=== PATIENT | male | born 1940 | race Caucasian/White ===

== ENCOUNTER → 2023-11-21 07:09 | Outpatient (REF) | payer OTHER, SELFPAY | LOC: HWRAD 07:09 | PROVIDERS: ATTENDING PHYSICIAN Specialist; FAMILY PHYSICIAN Family Medicine | DX: R31.9 Hematuria, unspecified (principal) | CPT/HCPCS: 74176 ==

== ENCOUNTER → 2023-11-24 06:19 | Outpatient (REF) | payer OTHER, SELFPAY | LOC: HWRAD 06:19 | PROVIDERS: ATTENDING PHYSICIAN Nurse Practitioner Family | DX: R07.81 Pleurodynia (principal) | CPT/HCPCS: 71111 ==

== ENCOUNTER → 2024-01-22 07:02 | Outpatient (REF) | payer OTHER, SELFPAY | LOC: HWRAD 07:02 | PROVIDERS: ATTENDING PHYSICIAN Nurse Practitioner Family | DX: M54.6 Pain in thoracic spine (principal) | CPT/HCPCS: 72072; 72110 ==

== ENCOUNTER 2024-02-15 09:12 | Emergency (ER) | payer OTHER, SELFPAY ==
[2024-02-15 09:14] VITALS: BP 168/96
[2024-02-15 09:37] VITALS: BP 141/70
[2024-02-15 09:39] VITALS: BMI 22.1
[2024-02-15 09:51] LABS: % Basophils 0.4 % (0-2); % Eosinophils 1.4 % (0-6); % Immature Granulocytes 0.6 % (0-0.5); % Lymphocytes 12.5 % (20.5-51.1); % Neutrophils 77.1 % (42.2-75.2); Absolute Eosinophils 0.1 10^3/uL (0-0.7); Absolute Lymphocytes 0.6 10^3/uL (1.2-3.4); Absolute Monocytes 0.4 10^3/uL (0.1-0.6); Absolute Neutrophils 3.9 10^3/uL (1.4-6.5); Hematocrit 36.3 % (39.0-52.0); Hemoglobin 12.2 g/dL (13.0-18.0); Mean Corp Hgb Conc. 33.6 g/dL (33.0-37.0); Mean Corpuscular Hgb 30.3 pg (27.0-31.0); Mean Corpuscular Volume 90.1 fL (80.0-94.0); Mean Platelet Volume 10.3 fL (7.4-10.4); Nucleated Red Blood Cells % 0 % (-); Platelet Count 159 10^3/uL (130-400); Red Blood Cell Count 4.03 10^6/uL (4.70-6.10); Red Cell Dist. Width 14.6 % (11.5-14.5)
[2024-02-15 10:00] VITALS: BP 120/70
[2024-02-15 10:03] LABS: APTT 47.7 Sec (23.4-35.0); PT 58.2 Sec (11.4-14.6)
[2024-02-15 10:05] LABS: INR 6.48
--- NOTE | 2024-02-15 10:15 | ED.GENMED ---
History of Present Illness
General
Chief Complaint: Abnormal Lab Value
Source: patient
Time Seen by Provider: 02/15/24 09:25
History of Present Illness
History of Present Illness:
83-year-old male with past medical history of DVT and PE, on Coumadin, presenting to the emergency department after he received a call from primary care's office stating his INR was greater than 6 and should go to the emergency department for
further evaluation. Patient states he has no symptoms at this time other than he did notice he was bruising a little bit easier than normal. Denies any melena or hematochezia, headaches, gingival bleeding or any other concerns. He did not take
his Coumadin yet today. He denies any changes in medications.
Past History
Past History
ED Past Medical History: HTN, Renal failure and Other (Crohn's disease, pulmonary embolus)
ED Past Surgical History: Bowel resection (Colectomy with ileostomy)
Social History
Tobacco: Non-smoker
Alcohol: None
Drug: None
Personal:
Living: with family
Review of Systems
Review of Systems
All Other Systems: ROS reviewed and negative except as documented in HPI and ROS
Phy Exam
Physical Exam
Physical Exam:
GENERAL: Alert , in no apparent distress
EYE: conjunctiva clear
Head: Normocephalic atraumatic
NECK: Supple,
ENT: mmm.
LUNGS: no acute respiratory distress
NEUROLOGICAL: Alert and oriented
SKIN: Warm and dry, skin intact. Scattered areas of ecchymosis to bilateral upper and lower extremities
MUSCULOSKELETAL: well perfused.
PSYCH: Normal and appropriate interaction.
Scores
Heart Failure Risk
Heart Failure Risk Score: Not Applicable
Heart Score for Chest Pain Patients
STEMI patient?: Not applicable
Withdrawal Assessment of Alcohol
Withdrawal Assessment Completed?: Not applicable
Course
Orders/Labs/Results
Orders:
Orders
02/15/24 09:26
Basic Metabolic Panel Urgent
02/15/24 09:43
PTT Urgent
Prothrombin Time Urgent
02/15/24 09:44
Complete Blood Count/With Diff Urgent
Abnormal Lab Results
02/15/24 02/15/24
09:43 09:44
RBC 4.03 L 10^6/uL
(4.70-6.10)
Hgb 12.2 L g/dL
(13.0-18.0)
Hct 36.3 L %
(39.0-52.0)
RDW 14.6 H %
(11.5-14.5)
Absolute Lymphs (auto) 0.6 L 10^3/uL
(1.2-3.4)
Immature Gran % 0.6 H %
(0-0.5)
Neutrophils % 77.1 H %
(42.2-75.2)
Lymphocytes % 12.5 L %
(20.5-51.1)
PT 58.2 H Sec
(11.4-14.6)
INR 6.48 H*
APTT 47.7 H Sec
(23.4-35.0)
02/15/24 09:44
Vital Signs
Initial and Last Documented VS:
Initial Vital Signs
Temp Pulse Resp BP Pulse Ox
99.2 F 77 16 168/96 98
02/15/24 09:14 02/15/24 09:14 02/15/24 09:14 02/15/24 09:14 02/15/24 09:14
Last Documented Vital Signs
Temp Pulse Resp BP Pulse Ox
99.2 F 77 16 141/70 97
02/15/24 09:14 02/15/24 09:14 02/15/24 09:14 02/15/24 09:37 02/15/24 09:38
MDM/Problems Addressed
MDM/Problems Addressed:
83-year-old male presenting emergency department for evaluation of reported elevated INR on outpatient labs done at [facility]. Patient is asymptomatic at present time. Will recheck labs and reassess following. Patient without any signs of active
bleeding and is otherwise hemodynamically stable
Chronic conditions affecting care: Other (DVT/PE)
*Pulse Oximetry
Patient hypoxic: no
*Critical Care Note
Total Time (30-74mins, 75-104mins- exclusive of procedures): Not Applicable
Data Reviewed
Review of Other/Old Records Reveals: Labs
Patient Management
Discussion with other providers: PCP
Escalation/DeEscalation of care consider admission/obs:
Patient's INR is 6.5 here in the emergency department. Given he is not having any active bleeding and otherwise stable decision was made to ultimately hold his Coumadin for the rest of the day today and tomorrow and to have his INR rechecked on
Monday. Patient and are agreeable with this plan. I notified patient's primary care provider who will ensure patient follows up to get his INR rechecked Monday. I advised the patient and that if they were unable to go to [facility] to
get this test done that they may return to the emergency department to have us recheck his INR here. They expressed understanding.
ED Attending Note
-
Portions of this chart may have been created with voice recognition software.� Occasional wrong word or��sound alike� substitutions may have occurred due to the inherent limitations of voice recognition software.
Discharge Plan
Departure
Patient Disposition: Home (Routine Discharge)
Date of Disposition: 02/15/24
Time of Disposition: 10:15
Patient with high blood pressure during this ER visit?: Yes
Discharge Problem:
Supratherapeutic INR
Instructions: Prothrombin time and INR (PT/INR)
Prescriptions:
No Action
echinacea 500 MG capsule
548 mg PO BID PRN (Reason: colds)
beta carotene 10,000 UNIT capsule
10,000 unit PO DAILY
Lactobacillus acidophilus [Acidophilus] 1 CAP capsule
1 cap PO DAILY PRN (Reason: diarrhea)
lycopene 10 MG capsule
10 mg PO DAILY
cholecalciferol (vitamin D3) 2,000 UNITS tablet
2,000 units PO DAILY
selenium 200 MCG capsule
200 mcg PO DAILY
warfarin [Jantoven] 3 MG tablet
6 mg PO SUTUWETHSA@1600
warfarin [Jantoven] 5 MG tablet
5 mg PO MOFR@1600
mesalamine [Canasa] 1,000 MG suppository
1,000 mg IN HS
hydrocodone-acetaminophen 1 TABLET tablet
1 tab PO Q4HPRN PRN (Reason: SEVERE PAIN)
tamsulosin 0.4 MG capsule
0.4 mg PO DAILY Qty: 15 0RF
Referrals:
Horacio Santoro MD [Family Provider] -
Activity Restrictions/Additional Instructions:
Your INR today was 6.5. You are going to discontinue taking your Coumadin the rest of the day today as well as all day tomorrow. On Monday you need to get your INR rechecked. If you are unable to do this at an outpatient lab please return to
the emergency department to have this redone.
Interventions
Interventions:
*Risk Screen - Suicide Last Done: 02/15/24 09:14
*General Assessment Last Done: 02/15/24 09:14
*Neglect/Abuse Screening Last Done: 02/15/24 09:14
ED- Fall Risk Assessment Last Done: 02/15/24 09:40
*ED COVID-19 Vaccine History Last Done: 02/15/24 09:40
Discharge Date and Time
Print Language: TAIWANESE
[2024-02-15 10:21] LABS: Blood Urea Nitrogen 19 mg/dl (9-20); Calcium 9.2 mg/dl (8.4-10.2); Carbon Dioxide 25 mmol/L (22-30); Chloride 103 mmol/L (98-107); Estimated Creatinine Clearance 64 ml/min; Glucose 95 mg/dl (70-99); Potassium 4.2 mmol/L (3.5-5.1); Sodium 137 mmol/L (135-145); eGFR > 60.00
== END 2024-02-15 10:37 | disposition home or self-care (01) ==
LOC: EMR 09:12
PROVIDERS: Physician Assistant Medical; EMERGENCY PHYSICIAN Student in an Organized Health Care Education/Training Program; FAMILY PHYSICIAN Family Medicine
DX: R79.1 Abnormal coagulation profile (principal); Z86.711 Personal history of pulmonary embolism; Z79.01 Long term (current) use of anticoagulants; I10 Essential (primary) hypertension
CPT/HCPCS: 99283; 80048; 85025; 85610; 85730

== ENCOUNTER → 2024-02-17 06:43 | Outpatient (REF) | payer OTHER, SELFPAY | LOC: MRI 06:43 | PROVIDERS: ATTENDING PHYSICIAN Physical Medicine & Rehabilitation; FAMILY PHYSICIAN Family Medicine | DX: M54.14 Radiculopathy, thoracic region (principal) | CPT/HCPCS: 72146 ==

== ENCOUNTER 2024-02-17 08:54 | Emergency (ER) | payer OTHER, SELFPAY ==
[2024-02-17 09:04] VITALS: BP 123/89
[2024-02-17 09:35] VITALS: BMI 21.2
--- NOTE | 2024-02-17 09:36 | ED.GENMED ---
History of Present Illness
General
Chief Complaint: Abnormal Lab Value
Time Seen by Provider: 02/17/24 09:21
History of Present Illness
History of Present Illness:
83 yo male returns to the ER for INR recheck. Was here 2d ago for this at which time INR was 6.48. Next two doses of warfarin were held and he returns today for recheck. Target INR 2-3. No complaints, denies gingival bleeding, hematuria, melena.
Past History
Past History
ED Past Medical History: HTN, Renal failure and Other (Crohn's disease, pulmonary embolus)
ED Past Surgical History: Bowel resection (Colectomy with ileostomy)
Social History
Tobacco: Non-smoker
Alcohol: None
Drug: None
Personal:
Living: with family
Review of Systems
Review of Systems
Allergies reviewed?: Yes
All Other Systems: ROS reviewed and negative except as documented in HPI and ROS
Phy Exam
Physical Exam
Physical Exam:
GEN: Well appearing, NAD, WDWN
HEENT: Oral mucosa moist, no scleral icterus
Cardiac: Regular rate
Lung: No respiratory distress, no tachypnea
MSK: No gross deformity or injuries
Skin: Good color, no pallor or jaundice, no rashes
Neuro: AO x3, moves all extremities freely
Psych: Calm, cooperative
Course
Orders/Labs/Results
Orders:
Orders
02/17/24 09:31
Prothrombin Time Urgent
Abnormal Lab Results
02/17/24
09:31
PT 38.5 H Sec
(11.4-14.6)
Vital Signs
Initial and Last Documented VS:
Initial Vital Signs
Temp Pulse Resp BP Pulse Ox
98.8 F 75 16 123/89 98
02/17/24 09:04 02/17/24 09:04 02/17/24 09:04 02/17/24 09:04 02/17/24 09:04
Last Documented Vital Signs
Temp Pulse Resp BP Pulse Ox
98.8 F 75 16 123/89 98
02/17/24 09:04 02/17/24 09:04 02/17/24 09:04 02/17/24 09:04 02/17/24 09:04
MDM/Problems Addressed
MDM/Problems Addressed:
Repeat INR 3.9, will advise 1 cm holding warfarin and 1 day of half dosage before resuming to normal and repeat INR in 48 hours
*Critical Care Note
Total Time (30-74mins, 75-104mins- exclusive of procedures): Not Applicable
ED Attending Note
-
Portions of this chart may have been created with voice recognition software.� Occasional wrong word or��sound alike� substitutions may have occurred due to the inherent limitations of voice recognition software.
Discharge Plan
Departure
Patient Disposition: Home (Routine Discharge)
Date of Disposition: 02/17/24
Time of Disposition: 10:10
Patient with high blood pressure during this ER visit?: No
Discharge Problem:
Supratherapeutic INR
Prescriptions:
No Action
echinacea 500 MG capsule
548 mg PO BID PRN (Reason: colds)
beta carotene 10,000 UNIT capsule
10,000 unit PO DAILY
Lactobacillus acidophilus [Acidophilus] 1 CAP capsule
1 cap PO DAILY PRN (Reason: diarrhea)
lycopene 10 MG capsule
10 mg PO DAILY
cholecalciferol (vitamin D3) 2,000 UNITS tablet
2,000 units PO DAILY
selenium 200 MCG capsule
200 mcg PO DAILY
warfarin [Jantoven] 3 MG tablet
6 mg PO SUTUWETHSA@1600
warfarin [Jantoven] 5 MG tablet
5 mg PO MOFR@1600
mesalamine [Canasa] 1,000 MG suppository
1,000 mg ME HS
hydrocodone-acetaminophen 1 TABLET tablet
1 tab PO Q4HPRN PRN (Reason: SEVERE PAIN)
tamsulosin 0.4 MG capsule
0.4 mg PO DAILY Qty: 15 0RF
Referrals:
Horacio Santoro MD [Family Provider] -
Activity Restrictions/Additional Instructions:
Do not take your dose of warfarin today
Take 1/2 dose (2.5mg) tomorrow
Have your INR rechecked on Monday
Interventions
Interventions:
*Risk Screen - Suicide Last Done: 02/17/24 09:04
*General Assessment Last Done: 02/17/24 09:04
*Neglect/Abuse Screening Last Done: 02/17/24 09:04
ED- Fall Risk Assessment Last Done: 02/17/24 09:36
*ED COVID-19 Vaccine History Last Done: 02/17/24 09:21
*Nursing Disposition Last Done: 02/17/24 10:26
Discharge Date and Time
Discharge Date/Time: 02/17/24 10:27
Print Language: PASHTO
[2024-02-17 09:55] LABS: INR 3.93; PT 38.5 Sec (11.4-14.6)
== END 2024-02-17 10:27 | disposition home or self-care (01) ==
LOC: EMR 08:54
PROVIDERS: Physician Assistant; EMERGENCY PHYSICIAN Emergency Medicine; FAMILY PHYSICIAN Family Medicine
DX: R79.1 Abnormal coagulation profile (principal); Z79.01 Long term (current) use of anticoagulants
CPT/HCPCS: 99283; 85610

== ENCOUNTER 2024-03-09 12:00 | Emergency (ER) | payer OTHER, SELFPAY ==
[2024-03-09 12:05] VITALS: BP 126/80
[2024-03-09 12:33] LABS: % Basophils 0.5 % (0-2); % Eosinophils 0.3 % (0-6); % Immature Granulocytes 0.3 % (0-0.5); % Lymphocytes 11.4 % (20.5-51.1); % Monocytes 6.6 % (1.7-9.3); % Neutrophils 80.9 % (42.2-75.2); Absolute Lymphocytes 0.7 10^3/uL (1.2-3.4); Absolute Monocytes 0.4 10^3/uL (0.1-0.6); Absolute Neutrophils 5.1 10^3/uL (1.4-6.5); Hematocrit 36.7 % (39.0-52.0); Hemoglobin 12.6 g/dL (13.0-18.0); Mean Corp Hgb Conc. 34.3 g/dL (33.0-37.0); Mean Corpuscular Hgb 30.7 pg (27.0-31.0); Mean Corpuscular Volume 89.5 fL (80.0-94.0); Mean Platelet Volume 10.2 fL (7.4-10.4); Nucleated Red Blood Cells % 0 % (-); Platelet Count 180 10^3/uL (130-400); Red Cell Dist. Width 15.8 % (11.5-14.5); White Blood Cell Count 6.3 10^3/uL (4.8-10.8)
[2024-03-09 12:54] LABS: ALT (SGPT) 15 U/L (0-50); AST (SGOT) 33 U/L (17-59); Albumin 4.5 g/dl (3.5-5.0); Alkaline Phosphatase 56 U/L (38-126); Blood Urea Nitrogen 26 mg/dl (9-20); Calcium 9.6 mg/dl (8.4-10.2); Carbon Dioxide 26 mmol/L (22-30); Chloride 101 mmol/L (98-107); Glucose 120 mg/dl (70-99); Potassium 4.6 mmol/L (3.5-5.1); Sodium 133 mmol/L (135-145); Total Bilirubin 1.2 mg/dl (0.2-1.3); Total Protein 7.3 g/dl (6.3-8.2); eGFR > 60.00
[2024-03-09 12:55] LABS: Alcohol None Detected
--- NOTE | 2024-03-09 14:38 | ED.GENMED ---
History of Present Illness
General
Chief Complaint: Weight Changes
Source: patient
Exam Limitations: none
Time Seen by Provider: 03/09/24 14:21
History of Present Illness
History of Present Illness:
See MDM
Past History
Past History
ED Past Medical History: HTN, Renal failure and Other (Crohn's disease, pulmonary embolus)
ED Past Surgical History: Bowel resection (Colectomy with ileostomy)
Social History
Tobacco: Non-smoker
Alcohol: None
Drug: None
Personal:
Living: with family
Phy Exam
Physical Exam
Physical Exam:
See MDM
Scores
Heart Failure Risk
Heart Failure Risk Score: Not Applicable
Course
Orders/Labs/Results
Orders:
Orders
03/09/24 12:16
Alcohol Urgent
Complete Blood Count/With Diff Urgent
Comprehensive Metabolic Panel Urgent
03/09/24 14:36
CT Head W/o Iv Contrast Urgent
Comment:
Reason For Exam: weak, confused
0.9% Sodium Chloride 1000 ml [Nss] 1,000 ml IV BOLUS
03/09/24 14:50
Prothrombin Time Urgent
Urinalysis Reflex To Culture Urgent
Date Specimen was Collected: 03/09/24
Time Specimen was Collected: 14:39
Urine Microscopic Reflex Cult Urgent
Abnormal Lab Results
03/09/24 03/09/24
12:16 14:50
RBC 4.10 L 10^6/uL
(4.70-6.10)
Hgb 12.6 L g/dL
(13.0-18.0)
Hct 36.7 L %
(39.0-52.0)
RDW 15.8 H %
(11.5-14.5)
Absolute Lymphs (auto) 0.7 L 10^3/uL
(1.2-3.4)
Neutrophils % 80.9 H %
(42.2-75.2)
Lymphocytes % 11.4 L %
(20.5-51.1)
PT 40.3 H Sec
(11.4-14.6)
Sodium 133 L mmol/L
(135-145)
BUN 26 H mg/dl
(9-20)
Glucose 120 H mg/dl
(70-99)
Urine Ketones Trace A
(Negative)
Ur Occult Blood Reflex Trace A
(Negative)
03/09/24 12:16
03/09/24 12:16
Vital Signs
Initial and Last Documented VS:
Initial Vital Signs
Temp Pulse Resp BP Pulse Ox
97.8 F 63 20 126/80 95
03/09/24 12:05 03/09/24 12:05 03/09/24 12:05 03/09/24 12:05 03/09/24 12:05
Last Documented Vital Signs
Temp Pulse Resp BP Pulse Ox
98.5 F 76 16 136/81 99
03/09/24 17:13 03/09/24 17:13 03/09/24 17:13 03/09/24 17:13 03/09/24 17:13
MDM/Problems Addressed
Differential Diagnosis Includes:
HPI and MDM Narrative:
83-year-old male presenting with for evaluation of generalized weakness, fatigue and confusion. Patient is extremely well-appearing and nontoxic on my examination. is concerned he is losing weight. Upon further questioning, it appears
that he lost his hunger and thirst and has not been eating much. We discussed this is likely the cause of his symptoms. Because of the decreased calorie intake, he is losing weight and becoming more tired and staying in bed more causing
deconditioning. We discussed different ways of increasing calorie intake and water intake. Will give IV fluids. Blood work without clinical significance to suggest significant lab abnormalities. After hearing this, both patient and are
relieved. Given the mild weakness and altered mental status as described by the , will obtain CT head and urinalysis. On my exam, patient has no focal deficits, is very pleasant and is conversing without issues.
Physical exam
General: Well appearing and non-toxic
HEENT: protecting airway. Mildly dry mucous membrane
Neck: appears supple
CV: No evidence of cyanosis
Resp: No accessory muscle use
Abd: Non-distended and nontender. Ileostomy with mild surrounding erythema from leakage
Extremities: No deformities
Neuro: alert
Psych: Normal affect
Skin: Intact
Problems Addressed including Acute and Chronic Conditions affecting care:
1. Weight loss
Acuity: acute
Prognosis: stable
Details: In the setting of decreased caloric intake. Discussed alternative ways to increase calories and fluids
2. General weakness
Acuity: acute
Prognosis: stable
Details: Likely in setting of decreased caloric intake. Will obtain CT head and urinalysis
3. Ileostomy skin irritation
Acuity: acute
Prognosis: stable
Details: There appears to be mild erythema which is likely consistent with fungal and questionable infection. Will prescribe antifungal and mupirocin ointment as a barrier
Updates
Urine and CT negative. Patient feels comfortable taking him home
Differential Diagnosis (but not limited to): Malnourishment, UTI, undiagnosed cancer
Testing considered: CT abdomen/pelvis but he has no pain
Drug therapy (if applicable): OTC meds, please see d/c instruction regarding Rx drugs
Amount and/or Complexity of Data Reviewed
Clinical info obtained from: Patient. indicates that he is not eating much
External data reviewed: N/A
Labs I independently reviewed (but not limited to): Sodium mildly low at 133
Radiology: The CT scan was personally and independently reviewed. In addition, official CT report reviewed.
Pulse Ox: not hypoxic
EKG independently reviewed: N/A
Liquid Sugar Melter: N/A
Critical Care: N/A
Risk of Complication:
Social Determinants of health: Good social support
Discussed with other providers: N/A
Escalation of Care includes Admit/Obs: After being observed in the Emergency Department, pt stable for discharge.
Occasional wrong word or 'sound a like' substitutions may have occurred due to the inherent limitations of voice recognition software. Read the chart carefully and recognize, using context, where substitutions have occurred.
*Critical Care Note
Total Time (30-74mins, 75-104mins- exclusive of procedures): Not Applicable
ED Attending Note
-
Portions of this chart may have been created with voice recognition software.� Occasional wrong word or��sound alike� substitutions may have occurred due to the inherent limitations of voice recognition software.
Discharge Plan
Departure
Patient Disposition: Home (Routine Discharge)
Date of Disposition: 03/09/24
Time of Disposition: 16:54
Patient with high blood pressure during this ER visit?: Yes
Discharge Problem:
Malnutrition, Ileostomy dysfunction
Instructions: BLOOD PRESSURE
Prescriptions:
New
clotrimazole 1 % cream
1 applic topical BID 14 Days Qty: 15 0RF
mupirocin 2 % ointment
1 applic topical BID Qty: 15 0RF
No Action
echinacea 500 MG capsule
548 mg PO BID PRN (Reason: colds)
beta carotene 10,000 UNIT capsule
10,000 unit PO DAILY
Acidophilus 1 CAP capsule
1 cap PO DAILY PRN (Reason: diarrhea)
cholecalciferol (vitamin D3) 2,000 UNITS tablet
2,000 units PO DAILY
selenium 200 MCG capsule
200 mcg PO DAILY
mesalamine [Canasa] 1,000 MG suppository
1,000 mg [place] HS
hydrocodone-acetaminophen 1 TABLET tablet
1 tab PO Q4HPRN PRN (Reason: SEVERE PAIN)
tamsulosin 0.4 MG capsule
0.4 mg PO DAILY Qty: 15 0RF
warfarin 2 mg Tablet
2 mg PO DAILY
escitalopram oxalate 5 mg Tablet
5 mg PO DAILY
Referrals:
Horacio Santoro MD [Family Provider] -
Activity Restrictions/Additional Instructions:
As we discussed, much of the issue appears to be poor food and water intake. Please talk to your doctor about malnutrition. You may use ensures in between meals to help with extra calories. You can mix the 2 creams as a barrier for the irritated
skin around the ileostomy
Interventions
Interventions:
*Risk Screen - Suicide Last Done: 03/09/24 12:05
*General Assessment Last Done: 03/09/24 12:05
*Neglect/Abuse Screening Last Done: 03/09/24 12:05
ED- Fall Risk Assessment Last Done: 03/09/24 14:54
*ED COVID-19 Vaccine History Last Done: 03/09/24 14:54
*Nursing Disposition Last Done: 03/09/24 17:13
Discharge Date and Time
Discharge Date/Time: 03/09/24 17:14
Print Language: CZECH
[2024-03-09 14:43] VITALS: BP 143/90
[2024-03-09] MEDS: NSS 1000 IV (14:51)
[2024-03-09 14:54] VITALS: BP 143/90; BMI 22.8
[2024-03-09 15:00] VITALS: BP 147/77
[2024-03-09 15:11] LABS: INR 4.16; PT 40.3 Sec (11.4-14.6)
[2024-03-09 16:30] LABS: Urine Albumin Trace (Neg - Trace); Urine Bilirubin Negative (Negative); Urine Character Clear (Clear); Urine Color Yellow; Urine Glucose Negative (Negative); Urine Ketone Trace (Negative); Urine Leukocyte Negative (Negative); Urine Nitrite Negative (Negative); Urine Occult Blood Trace (Negative); Urine Urobilinogen Negative (Neg - 1+)
[2024-03-09 16:37] LABS: Urine Hyaline Cast 0-2 /LPF (0-2); Urine Red Blood Cell 0-2 /HPF (0-2); Urine White Cell 0-2 /HPF (0-5)
[2024-03-09 17:13] VITALS: BP 136/81
== END 2024-03-09 17:14 | disposition home or self-care (01) ==
LOC: EMR 12:00
PROVIDERS: Emergency Medicine; EMERGENCY PHYSICIAN Student in an Organized Health Care Education/Training Program; FAMILY PHYSICIAN Family Medicine
DX: E46 Unspecified protein-calorie malnutrition (principal); Z68.22 Body mass index [BMI] 22.0-22.9, adult; R53.1 Weakness; R63.4 Abnormal weight loss; R41.0 Disorientation, unspecified; R53.83 Other fatigue; K94.13 Enterostomy malfunction; L53.9 Erythematous condition, unspecified; Y83.8 Other surgical procedures as the cause of abnormal reaction of the patient, or of later complication, without mention of misadventure at the time of the procedure; R03.0 Elevated blood-pressure reading, without diagnosis of hypertension; I12.9 Hypertensive chronic kidney disease with stage 1 through stage 4 chronic kidney disease, or unspecified chronic kidney disease; N18.9 Chronic kidney disease, unspecified; K50.90 Crohn's disease, unspecified, without complications; Z98.0 Intestinal bypass and anastomosis status; Z86.711 Personal history of pulmonary embolism
CPT/HCPCS: 99284; 96360; 70450; 80053; 81003; 81015; 82077; 85025; 85610

== ENCOUNTER → 2024-09-26 15:15 | Outpatient (REF) | payer OTHER, SELFPAY | LOC: PAVMRI 15:15 | PROVIDERS: ATTENDING PHYSICIAN Specialist; FAMILY PHYSICIAN Family Medicine | DX: G30.1 Alzheimer's disease with late onset (principal) | CPT/HCPCS: 70551 ==

== ENCOUNTER 2025-03-25 08:18 | Emergency (ER) | payer OTHER, SELFPAY ==
[2025-03-25 08:30] VITALS: BP 94/62
--- NOTE | 2025-03-25 10:23 | EDRN ---
[place] text message sent to case management, voicemail left for Courtney Jeffery home care nurse, phone number provided by pt's . Case management to follow with home care. Pt wearing a pull up which was saturated in urine. Perineal care provided,
sacral area red and excoriated. Pt placed on the R side at this time. New pull up was put on per 's request. Pt is currently a waiting room pt, but laying down in P1. Charge nurse is aware.
--- NOTE | 2025-03-25 10:55 | ED.GENMED ---
History of Present Illness
General
Chief Complaint: Back Pain
Source: spouse
Exam Limitations: dementia
Time Seen by Provider: 03/25/25 10:42
Nursing documentation reviewed up to this point in time: agreed with
History of Present Illness
History of Present Illness:
Patient is an 84-year-old male with past medical history of dementia, Alzheimer's PE hypertension hyperlipidemia Crohn's ileostomy anticoagulated on Coumadin brought to the ER by EMS. reports for the past 3 days patient has not gotten out of
his chair. He normally walks with a walker however has not been able to do so. He has not been eating or drinking. He rolled out of his chair yesterday 9 1 was called to assist him back in the chair. Today he slid out of the chair and
reports she could not pick him up.
She did speak with his pcp who does recommend home hospice. They were supposed to come today because but she was not able to care for him today and brought him here to the ER.
Past History
Past History
ED Past Medical History: HTN, Renal failure and Other (Crohn's disease, pulmonary embolus)
ED Past Surgical History: Bowel resection (Colectomy with ileostomy)
Social History
Tobacco: Non-smoker
Alcohol: None
Drug: None
Personal:
Living: with family
Phy Exam
General Physical Exam
General Presentation: no apparent distress
General age: appears older than age
General Skin: warm and dry
General Habitus: cachetic and failure to thrive
General Mental: other (pt sleepy)
General Hydration: dry mucous membranes
Cardiovascular Exam
Cardiovascular Exam: regular rate/rhythm, no murmur and normal peripheral pulses
Pulmonary Exam
Pulmonary Exam: lungs clear and no respiratory distress
Neurological Exam
Neurological Exam: alert
Musculoskeletal Exam
Musculoskeletal Exam: full ROM
Skin Exam
Skin Exam: normal color and warm/dry
Psychiatric Exam
Psychiatric Exam: normal mood/affect
Course
Vital Signs
Initial and Last Documented VS:
Initial Vital Signs
Temp Pulse Resp BP Pulse Ox
97.8 F 74 20 94/62 94
03/25/25 08:30 03/25/25 08:30 03/25/25 08:30 03/25/25 08:30 03/25/25 08:30
Last Documented Vital Signs
Temp Pulse Resp BP Pulse Ox
97.8 F 87 20 112/63 96
03/25/25 08:30 03/25/25 16:51 03/25/25 16:51 03/25/25 16:00 03/25/25 16:45
MDM/Problems Addressed
Differential Diagnosis Includes:
Not limited to failure to thrive, worsening dementia head injury, weakness dehydration
MDM/Problems Addressed:
Patient is an 82-year-old male with history of dementia/Alzheimer's cared for at home by . reports patient has not been eating for the past several days sitting in his chair very weak. He is of his chair yesterday 9 1 needed to come
assist him up again had a fall today. She called EMS because she was not able to get him up. Hospice is supposed to be coming to the house today.
I had a long conversation with and as she is considering hospice she wishes to hold off on any imaging labs CT etc. Pt able to state name but otherwise not really verbal here.
She wanted to speak with hospice nurse and hospice nurse fully evaluated patient at bedside.
is in agreement to place patient on hospice.
Hospice has arranged for transportation and will send hospice medications to the pharmacy. is also to get extra help at home, private duty care.
*Pulse Oximetry
SaO2: 94
Oxygen Mode of Delivery: Room air
Patient hypoxic: no
*Critical Care Note
Total Time (30-74mins, 75-104mins- exclusive of procedures): Not Applicable
ED Attending Note
-
Portions of this chart may have been created with voice recognition software.� Occasional wrong word or��sound alike� substitutions may have occurred due to the inherent limitations of voice recognition software.
Discharge Plan
Departure
Patient Disposition: Home (Routine Discharge)
Date of Disposition: 03/25/25
Time of Disposition: 12:44
Patient with high blood pressure during this ER visit?: No
Condition: Fair
Covid-19: Not Applicable
Discharge Problem:
Weakness
Instructions: Weakness
Prescriptions:
No Action
echinacea 500 MG capsule
548 mg PO BID PRN (Reason: colds)
beta carotene 10,000 UNIT capsule
10,000 unit PO DAILY
Acidophilus 1 CAP capsule
1 cap PO DAILY PRN (Reason: diarrhea)
cholecalciferol (vitamin D3) 2,000 UNITS tablet
2,000 units PO DAILY
selenium 200 MCG capsule
200 mcg PO DAILY
mesalamine [Canasa] 1,000 MG suppository
1,000 mg [place] HS
hydrocodone-acetaminophen 1 TABLET tablet
1 tab PO Q4HPRN PRN (Reason: SEVERE PAIN)
tamsulosin 0.4 MG capsule
0.4 mg PO DAILY Qty: 15 0RF
clotrimazole 1 % cream
1 applic topical BID 14 Days Qty: 15 0RF
mupirocin 2 % ointment
1 applic topical BID Qty: 15 0RF
warfarin 2 mg Tablet
2 mg PO DAILY
escitalopram oxalate 5 mg Tablet
5 mg PO DAILY
Referrals:
Horacio Santoro MD [Family Provider, Family Practice]
Interventions
Interventions:
*Risk Screen - Suicide Last Done: 03/25/25 08:21
*General Assessment Last Done: 03/25/25 08:21
*Neglect/Abuse Screening Last Done: 03/25/25 08:21
*ED- Fall Risk Assessment Last Done: 03/25/25 11:54
*ED COVID-19 Vaccine History Last Done: 03/25/25 10:56
*Nursing Disposition Last Done: 03/25/25 17:04
ED-Musculoskeletal Assessment Last Done: 03/25/25 11:54
Discharge Date and Time
Discharge Date/Time: 03/25/25 17:05
Print Language: MALTESE
[2025-03-25 12:19] VITALS: BP 110/71
[2025-03-25 13:00] VITALS: BP 112/72
--- NOTE | 2025-03-25 13:42 | CM ---
CM reviewed chart, was informed by ED that pt's wants to take him home with hospice. hospice notified by ED.
I met with his bedside in ED. Lives in apartment with his , [address], has elevator access.
Pt has been sleeping in his recliner. Per ED notes, was supposed to have home care visit today but sent him to ED.
Per Chelsey in hospice, pt does not need equipment delivered. Transport arranged for 530pm this evening.
PCP: Horacio Santoro
Pharmacy: [facility]
Discharge plan: Home with hospice, will see in am per .
[2025-03-25 14:00] VITALS: BP 100/66
[2025-03-25 15:00] VITALS: BP 108/66
[2025-03-25 16:00] VITALS: BP 112/63
== END 2025-03-25 17:05 | disposition home or self-care (01) ==
LOC: EMR 08:18
PROVIDERS: EMERGENCY PHYSICIAN Emergency Medicine; FAMILY PHYSICIAN Family Medicine
DX: R53.1 Weakness (principal); F02.80 Dementia in other diseases classified elsewhere, unspecified severity, without behavioral disturbance, psychotic disturbance, mood disturbance, and anxiety; G30.9 Alzheimer's disease, unspecified; E78.5 Hyperlipidemia, unspecified; I10 Essential (primary) hypertension; Z86.711 Personal history of pulmonary embolism; Z79.01 Long term (current) use of anticoagulants; Z51.5 Encounter for palliative care
CPT/HCPCS: 99283